=== PATIENT | male | born 1960 | race Caucasian/White ===

== ENCOUNTER 2019-10-09 22:52 | Inpatient (IN) | payer MEDICARE, OTHER ==
--- NOTE | 2019-10-09 23:15 | ED ---
Neuro HPI - General Chief Complaint: Neuro Symptoms/Deficit Stated Complaint: Right side numbness Time Seen by Provider: 10/09/19 23:04 Source: patient Mode of arrival: ambulatory Limitations: no limitations - History of Present Illness Is the patient presenting with stroke symptoms?: Yes Last Known Well Date: 10/09/19 Last Known Well Time: 14:30 -: hour(s) Location: right face, right arm, right leg History of same: No Place: home Severity: moderate Quality: numb Improves With: none Worsens With: none On Anticoagulants: No Associated Symptoms: denies other symptoms Treatments Prior to Arrival: none - Related Data Allergies/Adverse Reactions: Allergies Allergy/AdvReac Type Severity Reaction Status Date / Time sulfamethoxazole Allergy Dyspnea Verified 10/09/19 23:02 [From Bactrim] trimethoprim [From Bactrim] Allergy Dyspnea Verified 10/09/19 23:02 Review of Systems ROS Statement: Those systems with pertinent positive or pertinent negative responses have been documented in the HPI. ROS Other: All systems not noted in ROS Statement are negative. Constitutional: Denies: fever, chills Eyes: Denies: vision change ENT: Denies: hearing loss Respiratory: Denies: cough, dyspnea Cardiovascular: Denies: chest pain, palpitations, edema, syncope Gastrointestinal: Denies: abdominal pain, vomiting, diarrhea Genitourinary: Denies: dysuria Skin: Denies: rash Neurological: Reports: numbness. Denies: headache, weakness, confusion, abnormal gait General Exam Limitations: no limitations General appearance: alert, in no apparent distress Head exam: Present: atraumatic, normocephalic Eye exam: Present: normal appearance, PERRL, EOMI. Absent: scleral icterus, co njunctival injection ENT exam: Present: normal oropharynx Neck exam: Present: normal inspection Respiratory exam: Present: normal lung sounds bilaterally. Absent: respiratory distress, wheezes, rales, rhonchi, stridor Cardiovascular Exam: Present: regular rate, normal rhythm, normal heart sounds. Absent: systolic murmur, diastolic murmur, rubs, gallop GI/Abdominal exam: Present: soft. Absent: distended, tenderness, guarding Extremities exam: Present: normal inspection, normal capillary refill. Absent: pedal edema, calf tenderness Back exam: Present: normal inspection Neurological exam: Present: alert, oriented X3, CN II-XII intact, motor sensory deficit (Decreased light touch sensation throughout right arm or leg.) Skin exam: Present: warm, dry, intact, normal color. Absent: rash Stroke MDM - Lab Data Result diagrams: 10/10/19 00:06 10/10/19 00:06 Lab Results 10/10/19 10/10/19 10/10/19 Range/Units 00:06 00:06 00:06 WBC 8.5 (3.8-10.6) k/uL RBC 5.07 (4.30-5.90) m/uL Hgb 14.9 (13.0-17.5) gm/dL Hct 44.8 (39.0-53.0) % MCV 88.5 (80.0-100.0) fL MCH 29.4 (25.0-35.0) pg MCHC 33.2 (31.0-37.0) g/dL RDW 12.3 (11.5-15.5) % Plt Count 250 (150-450) k/uL Neutrophils % 61 % Lymphocytes % 28 % Monocytes % 7 % Eosinophils % 2 % Basophils % 1 % Neutrophils # 5.2 (1.3-7.7) k/uL Lymphocytes # 2.4 (1.0-4.8) k/uL Monocytes # 0.6 (0-1.0) k/uL Eosinophils # 0.2 (0-0.7) k/uL Basophils # 0.1 (0-0.2) k/uL PT 9.8 (9.0-12.0) sec INR 0.9 (<1.2) APTT 24.1 (22.0-30.0) sec Sodium 133 L (137-145) mmol/L Potassium 4.2 (3.5-5.1) mmol/L Chloride 101 (98-107) mmol/L Carbon Dioxide 26 (22-30) mmol/L Anion Gap 6 mmol/L BUN 20 (9-20) mg/dL Creatinine 1.01 (0.66-1.25) mg/dL Est GFR (CKD-EPI)AfAm >90 (>60 ml/min/1.73 sqM) Est GFR (CKD-EPI)NonAf 81 (>60 ml/min/1.73 sqM) Glucose 345 H (74-99) mg/dL Calcium 9.0 (8.4-10.2) mg/dL Total Bilirubin 0.6 (0.2-1.3) mg/dL AST 18 (17-59) U/L ALT 18 (4-49) U/L Alkaline Phosphatase 144 H (38-126) U/L Troponin I (0.000-0.034) ng/mL Total Protein 6.3 (6.3-8.2) g/dL Albumin 3.9 (3.5-5.0) g/dL Urine Color Urine Appearance (Clear) Urine pH (5.0-8.0) Ur Specific [place] (1.001-1.035) Urine Protein (Negative) Urine Glucose (UA) (Negative) Urine Ketones (Negative) Urine Blood (Negative) Urine Nitrite (Negative) Urine Bilirubin (Negative) Urine Urobilinogen (<2.0) mg/dL Ur Leukocyte Esterase (Negative) 10/10/19 10/10/19 Range/Units 00:06 00:06 WBC (3.8-10.6) k/uL RBC (4.30-5.90) m/uL Hgb (13.0-17.5) gm/dL Hct (39.0-53.0) % MCV (80.0-100.0) fL MCH (25.0-35.0) pg MCHC (31.0-37.0) g/dL RDW (11.5-15.5) % Plt Count (150-450) k/uL Neutrophils % % Lymphocytes % % Monocytes % % Eosinophils % % Basophils % % Neutrophils # (1.3-7.7) k/uL Lymphocytes # (1.0-4.8) k/uL Monocytes # (0-1.0) k/uL Eosinophils # (0-0.7) k/uL Basophils # (0-0.2) k/uL PT (9.0-12.0) sec INR (<1.2) APTT (22.0-30.0) sec Sodium (137-145) mmol/L Potassium (3.5-5.1) mmol/L Chloride (98-107) mmol/L Carbon Dioxide (22-30) mmol/L Anion Gap mmol/L BUN (9-20) mg/dL Creatinine (0.66-1.25) mg/dL Est GFR (CKD-EPI)AfAm (>60 ml/min/1.73 sqM) Est GFR (CKD-EPI)NonAf (>60 ml/min/1.73 sqM) Glucose (74-99) mg/dL Calcium (8.4-10.2) mg/dL Total Bilirubin (0.2-1.3) mg/dL AST (17-59) U/L ALT (4-49) U/L Alkaline Phosphatase (38-126) U/L Troponin I <0.012 (0.000-0.034) ng/mL Total Protein (6.3-8.2) g/dL Albumin (3.5-5.0) g/dL Urine Color Light Yellow Urine Appearance Clear (Clear) Urine pH 5.0 (5.0-8.0) Ur Specific [place] 1.025 (1.001-1.035) Urine Protein Negative (Negative) Urine Glucose (UA) 4+ H (Negative) Urine Ketones Trace H (Negative) Urine Blood Negative (Negative) Urine Nitrite Negative (Negative) Urine Bilirubin Negative (Negative) Urine Urobilinogen <2.0 (<2.0) mg/dL Ur Leukocyte Esterase Negative (Negative) - EKG Data -: EKG Interpreted by [facility] EKG shows normal: sinus rhythm, axis (Normal), intervals (QRS duration 122 ms, consistent with suspected right ventricular conduction delay. FL interval 218 ms consistent with first-degree AV block. OTC 447 ms, normal.), QRS complexes (Suspected intraventricular conduction delay), ST-T waves (Normal) Rate: normal (Rate 70 bpm) Past Medical History Past Medical History: Coronary Artery Disease (CAD), Diabetes Mellitus, GERD/Reflux History of Any Multi-Drug Resistant Organisms: None Reported Past Surgical History: Pacemaker Additional Past Surgical History / Comment(s): ulcer repair Past Psychological History: No Psychological Hx Reported Smoking Status: Never smoker Past Alcohol Use History: Rare Past Drug Use History: None Reported Course Vital Signs 10/09/19 10/09/19 10/09/19 22:58 23:12 23:30 Temperature 98.4 F Pulse Rate 72 70 69 Respiratory 20 16 10 L Rate Blood Pressure 193/99 158/78 O2 Sat by Pulse 99 98 Oximetry 10/10/19 10/10/19 10/10/19 00:00 00:30 00:32 Temperature Pulse Rate 64 63 61 Respiratory 19 18 20 Rate Blood Pressure 160/88 151/98 153/89 O2 Sat by Pulse Oximetry 10/10/19 10/10/19 10/10/19 01:00 01:30 01:56 Temperature 98.2 F Pulse Rate 66 Respiratory 16 Rate Blood Pressure 153/89 167/84 O2 Sat by Pulse 97 Oximetry Disposition Clinical Impression: Cerebrovascular accident (CVA) Disposition: ADMITTED IP TO THIS HOSP Condition: Fair Is patient prescribed a controlled substance at d/c from ED?: No Referrals: Analisa Rollins DO [Primary Care Provider] - 1-2 days
--- NOTE | 2019-10-09 23:56 | CT ---
EXAMINATION TYPE: CT brain wo con for TPA DATE OF EXAM: 10/09/2019 COMPARISON: None HISTORY: Neuro Deficit CT DLP: 1129.4 mGycm Automated exposure control for dose reduction was used. Multiple axial sections were obtained of the brain without contrast. Ventricles have normal size. There is no mass effect nor midline shift. There is no sign of intracran ial hemorrhage. There is mild hypodensity in the periventricular white matter. Calvarium is intact. IMPRESSION: There is evidence for some mild chronic small vessel ischemia. No hemorrhage.
--- NOTE | 2019-10-09 23:58 | XR ---
EXAMINATION TYPE: XR chest 1V portable DATE OF EXAM: 10/09/2019 COMPARISON: 03/28/2013 HISTORY: Altered mental status. Weakness. TECHNIQUE: FINDINGS: Heart and mediastinum are normal. Lungs are clear. Diaphragm is normal. Bony thorax is inta ct. There is left axillary pacemaker. There are chest leads. IMPRESSION: Normal chest. No change.
[2019-10-10 00:33] LABS: Basophils # (A) 0.1 k/uL (0-0.2); Basophils % (A) 1 %; Eosinophils # (A) 0.2 k/uL (0-0.7); Eosinophils % (A) 2 %; HCT 44.8 % (39.0-53.0); HGB 14.9 gm/dL (13.0-17.5); Lymphocytes # (A) 2.4 k/uL (1.0-4.8); Lymphocytes % (A) 28 %; MCH 29.4 pg (25.0-35.0); MCHC 33.2 g/dL (31.0-37.0); MCV 88.5 fL (80.0-100.0); Mean Platelet Volume 7.7; Monocytes # (A) 0.6 k/uL (0-1.0); Monocytes % (A) 7 %; Neutrophils # (A) 5.2 k/uL (1.3-7.7); Neutrophils % (A) 61 %; Platelet Count 250 k/uL (150-450); RBC 5.07 m/uL (4.30-5.90); RDW 12.3 % (11.5-15.5); WBC 8.5 k/uL (3.8-10.6)
[2019-10-10 00:37] LABS: Appearance,Urine Clear (Clear); Bilirubin,Urine Negative (Negative); Blood,Urine Negative (Negative); Color,Urine Light Yellow; Glucose,Urine (UA) 4+ (Negative); Ketones,Urine Trace (Negative); Leukocyte Esterase,Urine Negative (Negative); Nitrite,Urine Negative (Negative); Protein,Urine Negative (Negative); Specific Gravity,Urine 1.025 (1.001-1.035); Urobilinogen,Urine <2.0 mg/dL (<2.0)
[2019-10-10 00:39] LABS: ALT 18 U/L (4-49); AST 18 U/L (17-59); African American GFR (CKD) >90 (>60 ml/min/1.73 sqM); Albumin 3.9 g/dL (3.5-5.0); Alkaline Phosphatase 144 U/L (38-126); Anion Gap 6 mmol/L; Blood Urea Nitrogen 20 mg/dL (9-20); Carbon Dioxide 26 mmol/L (22-30); Chloride 101 mmol/L (98-107); Glucose 345 mg/dL (74-99); Non-African American GFR(CKD) 81 (>60 ml/min/1.73 sqM); Potassium 4.2 mmol/L (3.5-5.1); Sodium 133 mmol/L (137-145); Total Bilirubin 0.6 mg/dL (0.2-1.3); Total Protein 6.3 g/dL (6.3-8.2)
[2019-10-10 00:41] LABS: INR 0.9 (<1.2); Partial Thromboplastin Time 24.1 sec (22.0-30.0); Prothrombin Time 9.8 sec (9.0-12.0)
[2019-10-10] MEDS ORDERED: INSULIN REGULAR 100 UNIT/ML VIAL SQ STA (01:16)
--- NOTE | 2019-10-10 01:52 | CT ---
EXAMINATION TYPE: CT angio head neck DATE OF EXAM: 10/10/2019 COMPARISON: None HISTORY: Neuro Deficit CT DLP: 692.6 mGycm Automated exposure control for dose reduction was used. CONTRAST: Performed with IV Contrast, patient injected with 65 mL of Isovue 370. There are 3-D post processed images. There is normal branching pattern of the great vessels on the aortic arch. There is bilateral arteria l flow in the subclavian arteries. There is arterial flow in the common internal and external carotid arteries bilaterally. There is wide patency of the carotid artery bifurcations. There is no evidence of any plaque formation. There is bilateral arterial flow in the vertebral arteries. There is arteri al flow in the vertebrobasilar artery system. There is no evidence of carotid or vertebral artery ane urysm or dissection. There is no mass effect. There is normal contrast opacification of the venous sinuses. IMPRESSION: Negative CT angiogram of the neck. Negative CT angiogram of the brain. There is arterial flow in the anterior middle and posterior cerebral arteries. There is no mass effec t. There is no evidence of intracranial aneurysm or neovascularity.
[2019-10-10] MEDS ORDERED: ASPIRIN 81 MG PO STA (02:10)
[2019-10-10] MEDS: SODIUM CHLORIDE 0.9% 1,000 ML IV SCH ×2 (03:15→13:08)
[2019-10-10 03:25] LABS: Glucose,Whole Blood 218 mg/dL (75-99)
--- NOTE | 2019-10-10 08:27 | US ---
EXAMINATION TYPE: US carotid duplex BILAT DATE OF EXAM: 10/10/2019 COMPARISON: CTA neck earlier today CLINICAL HISTORY: Stenosis. Right side numbness. HTN. EXAM MEASUREMENTS: RIGHT: Peak Systolic Velocity (PSV) cm/sec ----- Right CCA: 44.8 ----- Right ICA: 65.1 ----- Right ECA: 77.3 ICA/CCA ratio: 1.5 RIGHT: End Diastole cm/sec ----- Right CCA: 7.8 ----- Right ICA: 25.8 ----- Right ECA: 10.1 LEFT: Peak Systolic Velocity (PSV) cm/sec ----- Left CCA: 41.9 ----- Left ICA: 80.1 ----- Left ECA: 86.7 ICA/CCA ratio: 1.9 LEFT: End Diastole cm/sec ----- Left CCA: 9.2 ----- Left ICA: 24.1 ----- Left ECA: 13.1 VERTEBRALS (direction of flow): Right Vertebral: Antegrade Left Vertebral: Antegrade Rhythm: Normal Keller scale images show no significant focal plaque at carotid bulb level bilaterally. C measurements and ratios remain within normal limits.. IMPRESSION: No significant plaque or stenosis in the common or internal carotid arteries bilaterally . Findings correlate with CTA neck earlier today. Criteria for Assigning % of Stenosis / Diameter reduction (Estimation based on the indirect measurements of the internal carotid artery velocities (ICA PSV). 1. Normal (no stenosis)=ICA PSV < 125 cm/s: ratio < 2.0: ICA EDV<40 cm/s. 2. Less than 50% stenosis=ICA PSV < 125 cm/s: ratio < 2.0: ICA EDV<40 cm/s. 3. 50 to 69% stenosis=ICA PSV of 125 to 230 cm/s: ration 2.0 ? 4.0: ICA EDV 40-100 cm/s. 4. Greater than 70% stenosis to near occlusion= ICA PSV > 230 cm/s: ratio > 4.0: ICA EDV > 100 cm/s. 5. Near occlusion= ICA PSV velocities may be low or undetectable: variable ratio and ICA EDV. 6. Total occlusion=unable to detect flow.
[2019-10-10] MEDS ORDERED: FAMOTIDINE 20 MG TAB PO SCH (09:00)
[2019-10-10] MEDS: DOCUSATE 100 MG CAP PO SCH ×2 (09:25→14:46)
[2019-10-10 09:43] LABS: Glucose,Whole Blood 170 mg/dL (75-99)
[2019-10-10] MEDS: ACETAMINOPHEN TAB 325 MG TAB PO PRN ×2 (09:44→19:32)
--- NOTE | 2019-10-10 11:01 | ECHOF ---
Referral Reason:Thrombus MEASUREMENTS -------- HEIGHT: 186.7 cm WEIGHT: 117.0 kg BP: 159/93 RVIDd: 3.6 cm (< 3.3) IVSd: 1.4 cm (0.6 - 1.1) LVIDd: 4.5 cm (3.9 - 5.3) LVPWd: 1.5 cm (0.6 - 1.1) IVSs: 1.8 cm LVIDs: 3.3 cm LVPWs: 2.0 cm LA Diam: 3.8 cm (2.7 - 3.8) LAESV Index (A-L): 24.77 ml/m Ao Diam: 4.0 cm (2.0 - 3.7) AV Cusp: 2.4 cm (1.5 - 2.6) MV EXCURSION: 21.171 mm (> 18.000) MV EF SLOPE: 72 mm/s (70 - 150) EPSS: 0.6 cm MV E Nathen: 0.62 m/s MV DecT: 286 ms MV A Nathen: 0.76 m/s MV E/A Ratio: 0.81 RAP: 5.00 mmHg RVSP: 22.27 mmHg TAPSE: 21.02 mm FINDINGS -------- Paced rhythm. This was a technically good study. The left ventricular size is normal. There is moderate concentric left ventricular hypertrophy. O verall left ventricular systolic function is normal with, an EF between 55 - 60 %. The right ventricle is mildly enlarged. Normal LA size by volume 22+/-6 ml/m2. The right atrium is normal in size. Aneurysmal Interatrial septum. There is mild aortic valve sclerosis. The mitral valve is normal. Mild tricuspid regurgitation present. Right ventricular systolic pressure is normal at < 35 mmHg. Trace/mild (physiologic) pulmonic regurgitation. The aortic root is dilated measuring 4.0cm. Normal inferior vena cava with normal inspiratory collapse consistent with estimated right atrial pre ssure of 5 mmHg. There is no pericardial effusion. CONCLUSIONS -------- 1. Paced rhythm. 2. This was a technically good study. 3. The left ventricular size is normal. 4. There is moderate concentric left ventricular hypertrophy. 5. Overall left ventricular systolic function is normal with, an EF between 55 - 60 %. 6. The right ventricle is mildly enlarged. 7. Normal LA size by volume 22+/-6 ml/m2. 8. The right atrium is normal in size. 9. Aneurysmal Interatrial septum. 10. There is mild aortic valve sclerosis. 11. The mitral valve is normal. 12. Mild tricuspid regurgitation present. 13. Right ventricular systolic pressure is normal at < 35 mmHg. 14. Trace/mild (physiologic) pulmonic regurgitation. 15. The aortic root is dilated measuring 4.0cm. 16. Normal inferior vena cava with normal inspiratory collapse consistent with estimated right atrial pressure of 5 mmHg. 17. There is no pericardial effusion. TUBE BALANCER: Noreen Hall RDCS
[2019-10-10 12:33] LABS: Glucose,Whole Blood 237 mg/dL (75-99)
--- NOTE | 2019-10-10 12:33 | P.HPIM ---
History of Present Illness 58-year-old the female came in, symptoms of numbness in the whole right side of the body without any weakness. Patient denied any headache patient denied any fever chills flulike symptoms patient denied any visual problems hearing p roblems. Patient still can use to have tingling numbness in the right side of the body all the workup including CT angios the carotid Doppler CT of the head are all negative. Patient has a pacemaker because of which she cannot do an MRI patient does have history of atrial fibrillation is on flecainide and metoprolol for rate control presently sinus rhythm not on anti-correlation because of his r ecurrent GI bleed in the past patient last GI bleeding was about 4 years ago patient appears to have massive bleed patient is not in any antiplatelet therapy at this time. Laboratory panel was ordered as of which are pending. Review of Systems REVIEW OF SYSTEMS: CONSTITUTIONAL: No fever, no malaise, no fatigue. HEENT: No recent visual problems or hearing problems. Denied any sore throat. CARDIOVASCULAR: No chest pain, orthopnea, PND, no palpitations, no syncope. PULMONARY: No shortness of breath, no cough, no hemoptysis. GASTROINTESTINAL: No diarrhea, no nausea, no vomiting, no abdominal pain. NEUROLOGICAL: No headaches, no weakness. HEMATOLOGICAL: Denies any bleeding or petechiae. GENITOURINARY: Denies any burning micturition, frequency, or urgency. MUSCULOSKELETAL/RHEUMATOLOGICAL: Denies any joint pain, swelling, or any muscle pain. ENDOCRINE: Denies any polyuria or polydipsia. The rest of the 14-point review of systems is negative. Past Medical History Past Medical History: Atrial Fibrillation, Coronary Artery Disease (CAD), Diabetes Mellitus, GERD/Reflux, GI Bleed, Hearing Disorder / Deafness, Hypertension, Memory Impairment, Pneumonia, Renal Disease, Skin Disorder, Sleep Apnea/CPAP/BIPAP, Vascular Disorder Additional Past Medical History / Comment(s): IDDM type II, neuropathy bilateral feet, paroxysmal Afib, cardiac murmur, lower GI bleed with anemia, duodenal ul cer with surgeries, kidney stones with lithotripsy, UTI, LALITHA without device ordered, migraines, chronic back pain-mostly lower back, memory impairment lately, R ear [place]/tinnitis, R upper leg varicose veins, seasonal allergies, sinus problems, eczema. History of Any Multi-Drug Resistant Organisms: None Reported Past Surgical History: Heart Catheterization, Hernia Repair, Pacemaker Additional Past Surgical History / Comment(s): Pacer intially inserted in 2004 and replaced in 2009, EGDs with ulcer cauterization, laparotomy with ulcer repair, colonoscopies, lithotripsy x2, r inguinal hernia repair. Past Anesthesia/Blood Transfusion Reactions: No Reported Reaction Additional Past Anesthesia/Blood Transfusion Reaction / Comment(s): Pt received blood in past without reaction. Type of Cardiac Device: Permanent Pacemaker Device Placement Date:: Originally placed in 2004 and replaced in 2009 Past Psychological History: Anxiety, Depression Additional Psychological History / Comment(s): Pt resides with his adult son in a duplex. His spouse in April 2019 from cancer. Pt states he has some anxiety and depression but nothing severe. He is independent. Smoking Status: Never smoker Past Alcohol Use History: Rare Past Drug Use History: None Reported - Past Family History Father Family Medical History: COPD Additional Family Medical History / Comment(s): Father is from COPD. He was a smoker. Mother Family Medical History: Diabetes Mellitus, Hypertension Additional Family Medical History / Comment(s): Mother is living. She is in a mcc. Medications and Allergies Home Medications Medication Instructions Recorded Confirmed Type Ascorbic Acid [Vitamin C] 500 mg PO DAILY 10/10/19 10/10/19 History Atorvastatin [Lipitor] 40 mg PO DAILY 10/10/19 10/10/19 History Ferrous Sulfate [Feosol] 325 mg PO DAILY 10/10/19 10/10/19 History Flecainide Acetate 100 mg PO BID 10/10/19 10/10/19 History Insulin NPH Human Isophane 15 units SQ BID 10/10/19 10/10/19 History [NovoLIN N] Lisinopril [Zestril] 10 mg PO DAILY 10/10/19 10/10/19 History Metoprolol Tartrate [Lopressor] 50 mg PO BID 10/10/19 10/10/19 History Nateglinide [Starlix] 60 mg PO BID-W/MEALS 10/10/19 10/10/19 History Omeprazole 20 mg PO DAILY 10/10/19 10/10/19 History Ranitidine HCl [Zantac] 150 mg PO DAILY 10/10/19 10/10/19 History amLODIPine [Norvasc] 5 mg PO DAILY 10/10/19 10/10/19 History metFORMIN HCL [Glucophage] 500 mg PO BID 10/10/19 10/10/19 History Allergies Allergy/AdvReac Type Severity Reaction Status Date / Time sulfamethoxazole Allergy Dyspnea Verified 10/09/19 23:02 [From Bactrim] trimethoprim [From Bactrim] Allergy Dyspnea Verified 10/09/19 23:02 Physical Exam Vitals: Vital Signs Temp Pulse Pulse Resp BP BP Pulse Ox 10/10/19 08:00 97.6 F 62 18 159/97 98 10/10/19 05:00 61 20 159/93 97 10/10/19 01:56 98.2 F 10/10/19 01:30 66 16 167/84 97 10/10/19 01:00 153/89 10/10/19 00:32 61 20 153/89 10/10/19 00:30 63 18 151/98 10/10/19 00:00 64 19 160/88 10/09/19 23:30 69 10 L 158/78 98 10/09/19 23:12 70 16 10/09/19 22:58 98.4 F 72 20 193/99 99 Intake and Output 10/09/19 10/10/19 10/10/19 22:59 06:59 14:59 Intake Total 100 Balance 100 Intake: Oral 100 Other: # Voids 1 Weight 117.118 kg 117.118 kg PHYSICAL EXAMINATION: GENERAL: The patient is alert and oriented x3, not in any acute distress. Well developed, well nourished. HEENT: Pupils are round and equally reacting to light. EOMI. No scleral icterus. No conjunctival pallor. Normocephalic, atraumatic. No pharyngeal erythema. No thyromegaly. CARDIOVASCULAR: S1 and S2 present. No murmurs, rubs, or gallops. PULMONARY: Chest is clear to auscultation, no wheezing or crackles. ABDOMEN: Soft, nontender, nondistended, normoactive bowel sounds. No palpable organomegaly. MUSCULOSKELETAL: No joint swelling or deformity. EXTREMITIES: No cyanosis, clubbing, or pedal edema. NEUROLOGICAL: Gross neurological examination did not reveal any focal deficits. SKIN: No rashes. Results CBC & Chem 7: 10/10/19 00:06 10/10/19 00:06 Labs: Abnormal Lab Results - Last 24 Hours (Table) 10/10/19 10/10/19 10/10/19 Range/Units 00:06 00:06 03:24 Sodium 133 L (137-145) mmol/L Glucose 345 H (74-99) mg/dL POC Glucose (mg/dL) 218 H (75-99) mg/dL Alkaline Phosphatase 144 H (38-126) U/L Urine Glucose (UA) 4+ H (Negative) Urine Ketones Trace H (Negative) 10/10/19 Range/Units 09:41 Sodium (137-145) mmol/L Glucose (74-99) mg/dL POC Glucose (mg/dL) 170 H (75-99) mg/dL Alkaline Phosphatase (38-126) U/L Urine Glucose (UA) (Negative) Urine Ketones (Negative) Thrombosis Risk Factor Assmnt - Choose All That Apply Any of the Below Risk Factors Present?: Yes Each Factor Represents 1 point: Age 41-60 years, Obesity (BMI >25), Varicose veins Other Risk Factors: No Other congenital or acquired thrombophilia - If yes, enter type in comment: No Thrombosis Risk Factor Assessment Total Risk Factor Score: 3 Thrombosis Risk Factor Assessment Level: Moderate Risk Assessment and Plan Plan: -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 Neurology was consulted as well although workup including echocardiogram, carotid Doppler CT angiosof the head and neck along with the noncontrast CT were all reviewed and no significant abnormal he was appreciated on those tests. -atrial fibrillation, probably paroxysmal presently sinus rhythm: Not on anticoagulations counseling ideology as mentioned above but for now we'll continue with aspirin -Type 2 diabetes mellitus: Patient will be resumed on his home regimen monitor closely metformin will be held as she he received contrast -Gases visual reflux disease next and-hypertension -Sleep apnea -depression
[2019-10-10] MEDS: ATORVASTATIN 40 MG TAB PO SCH (13:05)
[2019-10-10] MEDS: FLECAINIDE 50 MG TAB PO SCH ×2 (13:05→21:06)
[2019-10-10] MEDS: PANTOPRAZOLE 40 MG TABLET PO SCH (13:05)
[2019-10-10] MEDS: METOPROLOL TARTRATE 50 MG TAB PO SCH ×2 (13:06→21:06)
[2019-10-10] MEDS: LISINOPRIL 10 MG TAB PO SCH (13:06)
[2019-10-10] MEDS: APIXABAN 5 MG TAB PO SCH ×2 (13:13→21:06)
--- NOTE | 2019-10-10 13:28 | P.CRDCN ---
History of Present Illness Consult date: 10/10/19 Requesting physician: Kar Rangel Reason for Consult (text): Afib history, not on anticoagulation Chief complaint: right-sided numbness History of present illness: This is a pleasant 58-year-old gentleman who previously followed with Dr. Hale in the office but has not been seen since November 2016. He has a known history of hypertension, hyperlipidemia, mild CAD seen on heart catheterization from 2012, permanent pacemaker, diabetes mellitus type 2 which is poorly controlled with a most recent hemoglobin A1c of greater than 9 according to the patient. He has a history of paroxysmal atrial fibrillation, on flecainide. He has not been anticoagulated due to a history of recurrent GI bleeding most recently a few years ago at which time he required multiple transfusions and emergent surgical repair while on aspirin. He does have a history of snoring and likely obstructive sleep apnea. He presented to the emergency department after waking up from a nap and complaining of right-sided numbness. He had no other symptoms except maybe some mild lower extremity weakness. Denies any slurred speech, change in vision, dizziness, lightheadedness, facial droop, difficulty swallowing or difficulty speaking. He does admit to occasional palpitations which last no longer than a few minutes at a time. He has had no chest discomfort. He denies any shortness of breath, edema, orthopnea or PND. According to him his blood pressure has been well controlled at home. She had a brain shows evidence first mild chronic small vessel ischemia, no hemorrhage. Chest x-ray showed normal chest, no change. CT angiogram had and neck was negative. EKG showed sinus rhythm with a first-degree AV block. Echocardiogram with Doppler showed normal LV systolic function with an ejection fraction between 55-60%, mildly enlarged RV, aneurysmal interatrial septum, mild aortic valve sclerosis, mild tricuspid regurgitation. Carotid duplex showed no significant plaque or stenosis in the common or internal carotid arteries bilaterally. On admission blood pressure was elevated at 193/99. Blood pressure continues to be high but is better running in the 150s systolic and 70s to 80s diastolic. He continues to complain of right-sided numbness with no other deficits. Past Medical History Past Medical History: Atrial Fibrillation, Coronary Artery Disease (CAD), Diabetes Mellitus, GERD/Reflux, GI Bleed, Hearing Disorder / Deafness, Hypertension, Memory Impairment, Pneumonia, Renal Disease, Skin Disorder, Sleep Apnea/CPAP/BIPAP, Vascular Disorder Additional Past Medical History / Comment(s): IDDM type II, neuropathy bilateral feet, paroxysmal Afib, cardiac murmur, lower GI bleed with anemia, duodenal ulcer with surgeries, kidney stones with lithotripsy, UTI, LALITHA without device ordered, migraines, chronic back pain-mostly lower back, memory impairment lately, R ear PLATINUM/tinnitis, R upper leg varicose veins, seasonal allergies, sinus problems, eczema. History of Any Multi-Drug Resistant Organisms: None Reported Past Surgical History: Heart Catheterization, Hernia Repair, Pacemaker Additional Past Surgical History / Comment(s): Pacer intially inserted in 2004 and replaced in 2009, EGDs with ulcer cauterization, laparotomy with ulcer repair, colonoscopies, lithotripsy x2, r inguinal hernia repair. Past Anesthesia/Blood Transfusion Reactions: No Reported Reaction Additional Past Anesthesia/Blood Transfusion Reaction / Comment(s): Pt received blood in past without reaction. Type of Cardiac Device: Permanent Pacemaker Device Placement Date:: Originally placed in 2004 and replaced in 2009 Past Psychological History: Anxiety, Depression Additional Psychological History / Comment(s): Pt resides with his adult son in a duplex. His spouse in April 2019 from cancer. Pt states he has some anxiety and depression but nothing severe. He is independent. Smoking Status: Never smoker Past Alcohol Use History: Rare Past Drug Use History: None Reported - Past Family History Father Family Medical History: COPD Additional Family Medical History / Comment(s): Father is from COPD. He was a smoker. Mother Family Medical History: Diabetes Mellitus, Hypertension Additional Family Medical History / Comment(s): Mother is living. She is in a intermediate. Medications and Allergies Home Medications Medication Instructions Recorded Confirmed Type Ascorbic Acid [Vitamin C] 500 mg PO DAILY 10/10/19 10/10/19 History Atorvastatin [Lipitor] 40 mg PO DAILY 10/10/19 10/10/19 History Ferrous Sulfate [Feosol] 325 mg PO DAILY 10/10/19 10/10/19 History Flecainide Acetate 100 mg PO BID 10/10/19 10/10/19 History Insulin NPH Human Isophane 15 units SQ BID 10/10/19 10/10/19 History [NovoLIN N] Lisinopril [Zestril] 10 mg PO DAILY 10/10/19 10/10/19 History Metoprolol Tartrate [Lopressor] 50 mg PO BID 10/10/19 10/10/19 History Nateglinide [Starlix] 60 mg PO BID-W/MEALS 10/10/19 10/10/19 History Omeprazole 20 mg PO DAILY 10/10/19 10/10/19 History Ranitidine HCl [Zantac] 150 mg PO DAILY 10/10/19 10/10/19 History amLODIPine [Norvasc] 5 mg PO DAILY 10/10/19 10/10/19 History metFORMIN HCL [Glucophage] 500 mg PO BID 10/10/19 10/10/19 History Allergies Allergy/AdvReac Type Severity Reaction Status Date / Time sulfamethoxazole Allergy Dyspnea Verified 10/09/19 23:02 [From Bactrim] trimethoprim [From Bactrim] Allergy Dyspnea Verified 10/09/19 23:02 Physical Exam Vitals: Vital Signs Temp Pulse Pulse Resp BP BP Pulse Ox 10/10/19 13:03 97.9 F 67 18 151/81 97 10/10/19 08:00 97.6 F 62 18 159/97 98 10/10/19 05:00 61 20 159/93 97 10/10/19 01:56 98.2 F 10/10/19 01:30 66 16 167/84 97 10/10/19 01:00 153/89 10/10/19 00:32 61 20 153/89 10/10/19 00:30 63 18 151/98 10/10/19 00:00 64 19 160/88 10/09/19 23:30 69 10 L 158/78 98 10/09/19 23:12 70 16 10/09/19 22:58 98.4 F 72 20 193/99 99 Intake and Output 10/09/19 10/10/19 10/10/19 22:59 06:59 14:59 Intake Total 100 Balance 100 Intake: Oral 100 Other: # Voids 1 Weight 117.118 kg 117.118 kg PHYSICAL EXAMINATION: HEENT: Head is atraumatic, normocephalic. PERRLA. Neck is supple. There is no elevated jugular venous pressure. No carotid bruits auscultated. HEART EXAMINATION: Heart sounds regular, S1 and S2 normal. No murmur or gallop heard. CHEST EXAMINATION: Lungs are clear to auscultation. No chest wall tenderness is noted on palpation or with deep breathing. ABDOMEN: Soft, obese, nontender. Bowel sounds are heard. No organomegaly noted. EXTREMITIES: 1+ peripheral pulses with evidence of trace peripheral edema and no calf tenderness noted. NEUROLOGIC patient is awake, alert and oriented x3. Smile symmetric, tongue midline. Bilateral hand grasps equal, bilateral lower extremity strength equal. Speech is clear. . Results 10/10/19 00:06 10/10/19 00:06 Cardiac Enzymes 10/10/19 10/10/19 10/10/19 Range/Units 00:06 00:06 06:23 AST 18 (17-59) U/L Troponin I <0.012 <0.012 (0.000-0.034) ng/mL Coagulation 10/10/19 Range/Units 00:06 PT 9.8 (9.0-12.0) sec APTT 24.1 (22.0-30.0) sec CBC 10/10/19 Range/Units 00:06 WBC 8.5 (3.8-10.6) k/uL RBC 5.07 (4.30-5.90) m/uL Hgb 14.9 (13.0-17.5) gm/dL Hct 44.8 (39.0-53.0) % Plt Count 250 (150-450) k/uL Comprehensive Metabolic Panel 10/10/19 Range/Units 00:06 Sodium 133 L (137-145) mmol/L Potassium 4.2 (3.5-5.1) mmol/L Chloride 101 (98-107) mmol/L Carbon Dioxide 26 (22-30) mmol/L BUN 20 (9-20) mg/dL Creatinine 1.01 (0.66-1.25) mg/dL Glucose 345 H (74-99) mg/dL Calcium 9.0 (8.4-10.2) mg/dL AST 18 (17-59) U/L ALT 18 (4-49) U/L Alkaline Phosphatase 144 H (38-126) U/L Total Protein 6.3 (6.3-8.2) g/dL Albumin 3.9 (3.5-5.0) g/dL Current Medications Generic Name Dose Route Start Last Admin Trade Name Freq PRN Reason Stop Dose Admin Acetaminophen 650 mg 10/10/19 02:57 10/10/19 09:44 Tylenol Tab PO 650 mg Q6HR PRN Administration Pain Apixaban 5 mg 10/10/19 13:15 Eliquis PO BID [facility] Atorvastatin Calcium 40 mg 10/10/19 13:00 10/10/19 13:05 Lipitor PO 40 mg DAILY [facility] Administration Docusate Sodium 100 mg 10/10/19 08:00 10/10/19 09:25 Colace PO Not Given Q8HR [facility] Flecainide Acetate 100 mg 10/10/19 13:00 10/10/19 13:05 Tambocor PO 100 mg BID [facility] Administration Sodium Chloride 1,000 mls @ 100 mls/hr 10/10/19 03:00 10/10/19 13:08 Saline 0.9% IV 100 mls/hr .Q10H [facility] Administration Insulin Human NPH 15 unit 10/10/19 13:00 Humulin N SQ BID [facility] Lisinopril 10 mg 10/10/19 13:00 10/10/19 13:06 Zestril PO 10 mg DAILY [facility] Administration Metoprolol Tartrate 50 mg 10/10/19 13:00 10/10/19 13:06 Lopressor PO 50 mg BID [facility] Administration Starlix (Nateglinide 60 mg 10/10/19 17:30 ) 60 Mg PO BID-W/MEALS [facility] Pantoprazole Sodium 40 mg 10/10/19 13:00 10/10/19 13:05 Protonix PO 40 mg DAILY [facility] Administration Intake and Output 10/09/19 10/10/19 10/10/19 22:59 06:59 14:59 Intake Total 100 Balance 100 Intake: Oral 100 Other: # Voids 1 Weight 117.118 kg 117.118 kg Patient Weight 10/11/19 06:59 Weight 117.118 kg 10/10/19 00:06 10/10/19 00:06 Assessment and Plan Assessment: #1 right sided numbness, possible CVA versus TIA, negative CT, negative CTA, unable to perform MRI due to pacemaker #2 history of paroxysmal atrial fibrillation, not anticoagulated due to significant GI bleed in the past #3 hypertension #4 poorly controlled diabetes mellitus type 2 #5 hyperlipidemia #6 mild CAD per heart catheterization done 2012 #7 likely sleep apnea #8 history of permanent pacemaker implantation #9 noncompliance Plan: From cooker meal perspective, we will have the patient's pacemaker interrogated to assess for frequency and duration of atrial fibrillation. We will discontinue aspirin. We will add oral anticoagulation. Recommend outpatient sleep study to assess for sleep apnea. Discussed with patient importance of compliance with follow-up. We'll continue to follow the patient provide further recommendations accordingly. EMERGENCY DEPARTMENT PHYSICIAN note has been reviewed, I agree with a documented findings and plan of care. Patient was seen and examined.
--- NOTE | 2019-10-10 14:30 | P.CNNES ---
History of Present Illness Consult date: 10/10/19 Requesting physician: Onel Galvin Reason for Consult: ischemic stroke versus TIA History of Present Illness: Patient is a 58-year-old male with history of diabetes, hypertension, atrial fibrillation, currently not on any anti-platelets or anticoagulants because of his previous history of GI bleed, came to the hospital because of right-sided numbness of the body. Patient states that yesterday morning when he was trying to move his mother's wheelchair, he was noticing some right leg weakness. Otherwise he was fine. He later took a nap at 2:30 PM in his recliner . When he woke up at 4:30 PM, he noticed numbness of right side of the body, including face, arm and leg. He thought the symptoms would go away and ignored it. As the symptoms persisted, he came to the hospital at around around midnight. Patient underwent CT head showed mild chronic small vessel ischemic change. CTA of head and neck is completely normal. Patient's carotid Doppler is normal. 2- D echo showed paced rhythm. Left-ventricular size is normal. Moderate concentric LVH. EF 55-60%. Normal left atrial size. Aneurysmal interatrial septum. The aortic root is dilated measuring 4.0 cm. Chest x-ray normal. EKG shows sinus rhythm with first-degree AV block. patient's blood test is normal. Hemoglobin A1c is pending. Patient continues to have right-sided numbness. Denies any other focal symptoms, slurred speech facial droop, or visual disturbance. Patient has history of diabetes for 11 years, also hypertension. Patient has history of GI bleed since he was age 13. He states he gets GI bleed every 3 years. The last time it happened was 4 years ago, would not stop, and required laparotomy and surgical treatment of the GI bleed. Patient denies any tobacco use. Drinks beer once in a while. patient has history of atrial fibrillation, currently not on anticoagulation. He has a pacemaker. Review of Systems As above in detail. Otherwise completely unremarkable. All 14 point review of systems are reviewed. Past Medical History Past Medical History: Atrial Fibrillation, Coronary Artery Disease (CAD), Diabetes Mellitus, GERD/Reflux, GI Bleed, Hearing Disorder / Deafness, Hypertension, Memory Impairment, Pneumonia, Renal Disease, Skin Disorder, Sleep Apnea/CPAP/BIPAP, Vascular Disorder Additional Past Medical History / Comment(s): IDDM type II, neuropathy bilateral feet, paroxysmal Afib, cardiac murmur, lower GI bleed with anemia, duodenal ulcer with surgeries, kidney stones with lithotripsy, UTI, LALITHA without device ordered, migraines, chronic back pain-mostly lower back, memory impairment lately, R ear RAMONA/tinnitis, R upper leg varicose veins, seasonal allergies, sinus problems, eczema. History of Any Multi-Drug Resistant Organisms: None Reported Past Surgical History: Heart Catheterization, Hernia Repair, Pacemaker Additional Past Surgical History / Comment(s): Pacer intially inserted in 2004 and replaced in 2009, EGDs with ulcer cauterization, laparotomy with ulcer repair, colonoscopies, lithotripsy x2, r inguinal hernia repair. Past Anesthesia/Blood Transfusion Reactions: No Reported Reaction Additional Past Anesthesia/Blood Transfusion Reaction / Comment(s): Pt received blood in past without reaction. Type of Cardiac Device: Permanent Pacemaker Device Placement Date:: Originally placed in 2004 and replaced in 2009 Past Psychological History: Anxiety, Depression Additional Psychological History / Comment(s): Pt resides with his adult son in a duplex. His spouse in April 2019 from cancer. Pt states he has some anxiety and depression but nothing severe. He is independent. Smoking Status: Never smoker Past Alcohol Use History: Rare Past Drug Use History: None Reported - Past Family History Father Family Medical History: COPD Additional Family Medical History / Comment(s): Father is from COPD. He was a smoker. Mother Family Medical History: Diabetes Mellitus, Hypertension Additional Family Medical History / Comment(s): Mother is living. She is in a residential. Medications and Allergies Home Medications Medication Instructions Recorded Confirmed Type Ascorbic Acid [Vitamin C] 500 mg PO DAILY 10/10/19 10/10/19 History Atorvastatin [Lipitor] 40 mg PO DAILY 10/10/19 10/10/19 History Ferrous Sulfate [Feosol] 325 mg PO DAILY 10/10/19 10/10/19 History Flecainide Acetate 100 mg PO BID 10/10/19 10/10/19 History Insulin NPH Human Isophane 15 units SQ BID 10/10/19 10/10/19 History [NovoLIN N] Lisinopril [Zestril] 10 mg PO DAILY 10/10/19 10/10/19 History Metoprolol Tartrate [Lopressor] 50 mg PO BID 10/10/19 10/10/19 History Nateglinide [Starlix] 60 mg PO BID-W/MEALS 10/10/19 10/10/19 History Omeprazole 20 mg PO DAILY 10/10/19 10/10/19 History Ranitidine HCl [Zantac] 150 mg PO DAILY 10/10/19 10/10/19 History amLODIPine [Norvasc] 5 mg PO DAILY 10/10/19 10/10/19 History metFORMIN HCL [Glucophage] 500 mg PO BID 10/10/19 10/10/19 History Allergies Allergy/AdvReac Type Severity Reaction Status Date / Time sulfamethoxazole Allergy Dyspnea Verified 10/09/19 23:02 [From Bactrim] trimethoprim [From Bactrim] Allergy Dyspnea Verified 10/09/19 23:02 Physical Examination - Vital Signs Vital Signs: Vital Signs Temp Pulse Pulse Resp BP BP Pulse Ox 10/10/19 13:03 97.9 F 67 18 151/81 97 10/10/19 08:00 97.6 F 62 18 159/97 98 10/10/19 05:00 61 20 159/93 97 10/10/19 01:56 98.2 F 10/10/19 01:30 66 16 167/84 97 10/10/19 01:00 153/89 10/10/19 00:32 61 20 153/89 10/10/19 00:30 63 18 151/98 10/10/19 00:00 64 19 160/88 10/09/19 23:30 69 10 L 158/78 98 10/09/19 23:12 70 16 10/09/19 22:58 98.4 F 72 20 193/99 99 Intake and Output 10/09/19 10/10/19 10/10/19 22:59 06:59 14:59 Intake Total 100 Balance 100 Intake: Oral 100 Other: # Voids 1 Weight 117.118 kg 117.118 kg On examination patient is a late middle aged male, in no distress. Patient is alert and awake fully oriented. Speech and language functions are normal. Attention concentration fund of knowledge is adequate. Cranial nervespupils are round and reactive to light, visual mace are full on confrontation, extraocular muscles are intact with no nystagmus. Face is symmetric, tongue protrudes the midline. Palatal elevation and sensation normal. On muscle strength testing patient has mild right pronator drift. The strength however is normal in arms and legs distally and proximally. Reflexes are 1+ and plantars downgoing. Sensory touch is decreased in the right side of the body. No ataxia for [id number] testing. Tone and bulk of muscles normal. There is no carotid bruit or murmur. Peripheral pulses present. Results - Laboratory Findings CBC and BMP: 10/10/19 00:06 10/10/19 00:06 Abnormal Lab Findings: Abnormal Labs 10/10/19 10/10/19 10/10/19 00:06 00:06 03:24 Sodium 133 L Glucose 345 H POC Glucose (mg/dL) 218 H Alkaline Phosphatase 144 H Urine Glucose (UA) 4+ H Urine Ketones Trace H 10/10/19 10/10/19 09:41 12:31 Sodium Glucose POC Glucose (mg/dL) 170 H 237 H Alkaline Phosphatase Urine Glucose (UA) Urine Ketones Assessment and Plan Assessment: * 58-year-old male, admitted with acute onset of numbness of right side of the body. Symptoms have been present since almost last 24 hours, therefore suggestive of an acute ischemic stroke. Mechanism of stroke uncertain if related to a lacunar left thalamic stroke from small vessel disease or embolic from atrial fibrillation. Patient currently not on any anticoagulants prior to arrival to the hospital. * Diabetes, not well controlled, * Hypertension * Pacemaker. * Atrial fibrillation * Previous history of recurrent GI bleed. Plan: * Patient cannot have MRI due to presence of pacemaker. * Patient has been started on Eliquis 5 mg twice a day. * We will check fasting a.m. lipid panel and hemoglobin A1c. * Optimize control of stroke risk factors. * PT and OT.
[2019-10-10] MEDS: INSULIN NPH 300 UNIT/3 ML VIAL SQ SCH ×2 (14:45→21:07)
[2019-10-10 17:00] LABS: Glucose,Whole Blood 224 mg/dL (75-99)
[2019-10-10 20:03] LABS: Hemoglobin A1C 11.2 % (4.0-6.0)
[2019-10-10 20:09] LABS: Glucose,Whole Blood 223 mg/dL (75-99)
[2019-10-10] MEDS: INSULIN ASPART (NovoLOG) 100 UNIT/ML VIAL SQ SCH (21:07)
[2019-10-11] MEDS: DOCUSATE 100 MG CAP PO SCH ×2 (00:52→09:37)
[2019-10-11] MEDS: SODIUM CHLORIDE 0.9% 1,000 ML IV SCH ×2 (00:53→09:37)
[2019-10-11] MEDS ORDERED: ASPIRIN 325 MG TAB PO SCH (03:00)
[2019-10-11 04:51] VITALS: PULSE 60
[2019-10-11 06:00] LABS: Glucose,Whole Blood 106 mg/dL (75-99)
[2019-10-11 06:23] LABS: African American GFR (CKD) >90 (>60 ml/min/1.73 sqM); Anion Gap 6 mmol/L; Blood Urea Nitrogen 15 mg/dL (9-20); Calcium 8.5 mg/dL (8.4-10.2); Carbon Dioxide 27 mmol/L (22-30); Chloride 103 mmol/L (98-107); Glucose 108 mg/dL (74-99); Non-African American GFR(CKD) 84 (>60 ml/min/1.73 sqM); Potassium 4.2 mmol/L (3.5-5.1); Sodium 136 mmol/L (137-145)
[2019-10-11 06:40] LABS: Cholesterol 115 mg/dL (<200); HDL Cholesterol 38 mg/dL (40-60); LDL Cholesterol,Calculated 56 mg/dL (0-99); Triglycerides 105 mg/dL (<150)
[2019-10-11] MEDS: INSULIN ASPART (NovoLOG) 100 UNIT/ML VIAL SQ SCH ×2 (06:47→13:05)
[2019-10-11] MEDS: ACETAMINOPHEN TAB 325 MG TAB PO PRN (06:58)
[2019-10-11] MEDS: INSULIN NPH 300 UNIT/3 ML VIAL SQ SCH (08:55)
[2019-10-11 09:36] VITALS: BP 140/80; RESP 18; TEMP 98.2
[2019-10-11] MEDS: LISINOPRIL 10 MG TAB PO SCH (09:36)
[2019-10-11] MEDS: METOPROLOL TARTRATE 50 MG TAB PO SCH (09:37)
[2019-10-11] MEDS: APIXABAN 5 MG TAB PO SCH (09:37)
[2019-10-11] MEDS: FLECAINIDE 50 MG TAB PO SCH (09:37)
[2019-10-11] MEDS: ATORVASTATIN 40 MG TAB PO SCH (09:37)
[2019-10-11] MEDS: PANTOPRAZOLE 40 MG TABLET PO SCH (09:37)
--- NOTE | 2019-10-11 12:17 | P.DS ---
Providers Date of admission: 10/10/19 15:14 Attending physician: Airam Ramirez Consults: 10/10/19 02:59 Consult Physician Routine Consulting Provider: Manisha Roche Consult Reason/Comments: Ischemic stroke vs TIA Do you want consulting provider notified?: Yes 10/10/19 12:19 Consult Physician Routine Consulting Provider: Lindsey Hale Consult Reason/Comments: a.fib history, not on anticoagulation, stroke Do you want consulting provider notified?: Yes Primary care physician: Analisa Rollins [facility] Course: 58-year-old the female came in, symptoms of numbness in the whole right side of the body without any weakness. Patient denied any headache patient denied any fever chills flulike symptoms patient denied any visual problems hearing problems. Patient still can use to have tingling numbness in the right side of the body all the workup including CT angios the carotid Doppler CT of the head are all negative. Patient has a pacemaker because of which she cannot do an MRI patient does have history of atrial fibrillation is on flecainide and metoprolol for rate control presently sinus rhythm not on anti-correlation because of his recurrent GI bleed in the past patient last GI bleeding was about 4 years ago patient appears to have massive bleed patient is not in any antiplatelet therapy at this time. Laboratory panel was ordered as of which are pending. 10/11/2019 Patient still has some residual tingling and numbness on the right side of the body. Patient appears to have thalamic stroke on the left side. It can be the thrombotic or embolic patient has history of atrial fibrillation patient is being started on Eliquis and patient will be discharged today. Echocardiogram was reviewed PHYSICAL EXAMINATION: GENERAL: The patient is alert and oriented x3, not in any acute distress. Well developed, well nourished. HEENT: Pupils are round and equally reacting to light. EOMI. No scleral icterus. No conjunctival pallor. Normocephalic, atraumatic. No pharyngeal erythema. No thyromegaly. CARDIOVASCULAR: S1 and S2 present. No murmurs, rubs, or gallops. PULMONARY: Chest is clear to auscultation, no wheezing or crackles. ABDOMEN: Soft, nontender, nondistended, normoactive bowel sounds. No palpable organomegaly. MUSCULOSKELETAL: No joint swelling or deformity. EXTREMITIES: No cyanosis, clubbing, or pedal edema. NEUROLOGICAL: Gross neurological examination did not reveal any focal deficits. SKIN: No rashes. Assessment and Plan Plan: -possible cerebrovascular accident involving VPL nucleus of left thalamus from his symptomatology:patient's LDL is 56 and all the workup is so far negative we are unable to often MRI because of his pacemaker. Patient will be discharged on Eliquis considering his history of atrial fibrillation -atrial fibrillation, probably paroxysmal presently sinus rhythm:was started on Eliquis patient will be discharged on Eliquis -Type 2 diabetes mellitus: patient's hemoglobin A1c is 11 although his blood sugar is very well controlled here this probably because of the diabetic counseling was provided I'm increasing the dose of metformin 1000 twice a day -gastroesophageal reflux disease next and-hypertension -Sleep apnea -depression Patient Condition at Discharge: Fair Plan - Discharge Summary New Discharge Prescriptions: New Apixaban [Eliquis] 5 mg PO BID #60 tab Continue Metoprolol Tartrate [Lopressor] 50 mg PO BID Flecainide Acetate 100 mg PO BID Omeprazole 20 mg PO DAILY Nateglinide [Starlix] 60 mg PO BID-W/MEALS Lisinopril [Zestril] 10 mg PO DAILY Insulin NPH Human Isophane [NovoLIN N] 15 units SQ BID Ranitidine HCl [Zantac] 150 mg PO DAILY Ferrous Sulfate [Iron (65 MG Elemental)] 325 mg PO DAILY Atorvastatin [Lipitor] 40 mg PO DAILY Ascorbic Acid [Vitamin C] 500 mg PO DAILY amLODIPine [Norvasc] 5 mg PO DAILY Changed metFORMIN HCL [Glucophage] 1,000 mg PO BID #0 Discharge Medication List Ascorbic Acid [Vitamin C] 500 mg PO DAILY 10/10/19 [History] Atorvastatin [Lipitor] 40 mg PO DAILY 10/10/19 [History] Ferrous Sulfate [Iron (65 MG Elemental)] 325 mg PO DAILY 10/10/19 [History] Flecainide Acetate 100 mg PO BID 10/10/19 [History] Insulin NPH Human Isophane [NovoLIN N] 15 units SQ BID 10/10/19 [History] Lisinopril [Zestril] 10 mg PO DAILY 10/10/19 [History] Metoprolol Tartrate [Lopressor] 50 mg PO BID 10/10/19 [History] Nateglinide [Starlix] 60 mg PO BID-W/MEALS 10/10/19 [History] Omeprazole 20 mg PO DAILY 10/10/19 [History] Ranitidine HCl [Zantac] 150 mg PO DAILY 10/10/19 [History] amLODIPine [Norvasc] 5 mg PO DAILY 10/10/19 [History] Apixaban [Eliquis] 5 mg PO BID #60 tab 10/11/19 [Rx] metFORMIN HCL [Glucophage] 1,000 mg PO BID #0 10/11/19 [Rx] Follow up Appointment(s)/Referral(s): Lolita Bernardo MD [STAFF PHYSICIAN] - 1 Week (Consult for outpatient sleep study. ) Lindsey Hale MD [STAFF PHYSICIAN] - 1 Week Analisa Rollins DO [Primary Care Provider] - 1-2 days Patient Instructions/Handouts: Ischemic Stroke (DC), Safe Use of Anticoagulants (DC) Discharge Disposition: HOME SELF-CARE
[2019-10-11 12:29] LABS: Glucose,Whole Blood 207 mg/dL (75-99)
[2019-10-11 13:16] LABS: MCH 29.3 pg (25.0-35.0); MCHC 32.5 g/dL (31.0-37.0); MCV 90.1 fL (80.0-100.0); Mean Platelet Volume 8.6; Platelet Count 270 k/uL (150-450); RDW 12.6 % (11.5-15.5)
[2019-10-11 13:37] VITALS: BMI 32.8
== END 2019-10-11 15:17 | disposition home or self-care (01) | DRG 66 ==
LOC: EC 22:52 → 3SCARD 10-10 03:02 → OBSVTOIN 10-10 15:14
PROVIDERS: ADMIT Hospitalist; ATTEND Hospitalist
PROC: 4B02XSZ Measurement of Cardiac Pacemaker, External Approach (ICD-10-PCS; principal; 2019-10-10)
DX: I63.39 Cerebral infarction due to thrombosis of other cerebral artery (principal); I63.49 Cerebral infarction due to embolism of other cerebral artery; I08.2 Rheumatic disorders of both aortic and tricuspid valves; I11.9 Hypertensive heart disease without heart failure; E11.42 Type 2 diabetes mellitus with diabetic polyneuropathy; R40.2132 Coma scale, eyes open, to sound, at arrival to emergency department; R40.2362 Coma scale, best motor response, obeys commands, at arrival to emergency department; R40.2252 Coma scale, best verbal response, oriented, at arrival to emergency department; R20.0 Anesthesia of skin; E11.65 Type 2 diabetes mellitus with hyperglycemia; E78.5 Hyperlipidemia, unspecified; F32.9 Major depressive disorder, single episode, unspecified; F41.9 Anxiety disorder, unspecified; H91.91 Unspecified hearing loss, right ear; I25.10 Atherosclerotic heart disease of native coronary artery without angina pectoris; I44.0 Atrioventricular block, first degree; I48.0 Paroxysmal atrial fibrillation; K21.9 Gastro-esophageal reflux disease without esophagitis; G47.33 Obstructive sleep apnea (adult) (pediatric); G43.909 Migraine, unspecified, not intractable, without status migrainosus; G89.29 Other chronic pain; M54.5 Low back pain; H93.11 Tinnitus, right ear; I83.90 Asymptomatic varicose veins of unspecified lower extremity; L30.9 Dermatitis, unspecified; J30.2 Other seasonal allergic rhinitis; Z79.4 Long term (current) use of insulin; Z79.899 Other long term (current) drug therapy; Z88.1 Allergy status to other antibiotic agents; Z88.2 Allergy status to sulfonamides; Z95.0 Presence of cardiac pacemaker; Z91.19 Patient's noncompliance with other medical treatment and regimen; Z87.442 Personal history of urinary calculi; Z87.01 Personal history of pneumonia (recurrent); Z87.11 Personal history of peptic ulcer disease; Z87.440 Personal history of urinary (tract) infections; Z83.3 Family history of diabetes mellitus; Z82.49 Family history of ischemic heart disease and other diseases of the circulatory system; Z82.5 Family history of asthma and other chronic lower respiratory diseases
CPT/HCPCS: 36415; 70450; 70496; 70498; 71045; 80048; 80053; 80061; 81003; 83036; 84484; 85025; 85027; 85610; 85730; 93005; 93306; 93880; 99285

== ENCOUNTER → 2021-08-11 | Outpatient (CLI) | payer MEDICARE ==
[2021-08-11 19:12] LABS: ALT 28 U/L (10-49); AST 17 U/L (14-35); African American GFR (CKD) 87.7 (60.0-200.0); Albumin 4.1 g/dL (3.8-4.9); Albumin/Globulin Ratio 2.17 (1.60-3.17); Alkaline Phosphatase 131 U/L (41-126); BUN/Creat Ratio 7.07 Ratio (12.00-20.00); Blood Urea Nitrogen 7.4 mg/dL (9.0-27.0); Calcium 8.9 mg/dL (8.7-10.3); Carbon Dioxide 22.4 mmol/L (20.0-27.5); Chloride 103 mmol/L (96-109); Chol/HDL Ratio 2.28 Ratio; Globulin 1.9 g/dL (1.6-3.3); Glucose 185 mg/dL (70-110); LDL Cholesterol,Calculated 38.4 mg/dL (0.0-131.0); Non-African American GFR(CKD) 75.7 (60.0-200.0); Potassium 3.7 mmol/L (3.5-5.5); Sodium 139 mmol/L (135-145)
[2021-08-11 19:45] LABS: HCT 42.5 % (39.6-50.0); HGB 13.6 g/dL (13.0-17.0); MCH 29.1 pg (27.0-32.0); MCV 90.8 fL (80.0-97.0); Mean Platelet Volume 10.2 fL (9.5-12.2); Platelet Count 324 X 10*3/uL (140-440); RBC 4.68 X 10*6/uL (4.40-5.60); RDW 12.6 % (11.5-14.5)
== END | disposition home or self-care (01) ==
LOC: LABWHC1 12:06
PROVIDERS: ATTEND Physician Assistant
DX: E11.40 Type 2 diabetes mellitus with diabetic neuropathy, unspecified (principal); E78.5 Hyperlipidemia, unspecified; I10 Essential (primary) hypertension
CPT/HCPCS: 36415; 80053; 80061; 83036; 84443; 85027